=== PATIENT | female | born 1965 | race Caucasian/White ===

== ENCOUNTER 2021-11-24 12:09 | Emergency (ER) | payer BC, OTHER ==
[~2021-11-24] VITALS: Ht 172.7 cm; Wt 76.8 kg
[2021-11-24 13:01] VITALS: TEMP 99.3
[2021-11-24 13:26] LABS: BASO % 0.4 % (0.0-2.0); EOS # 0.1 K/mm3 (0.0-0.7); EOS % 2.2 % (0.0-4.0); GRAN # 3.6 K/mm3 (1.4-6.5); GRAN % 67.4 % (42.2-75.2); HEMATOCRIT 41.3 % (37.0-47.0); HEMOGLOBIN 13.9 g/dl (12.5-16.0); LYMPH # 1.3 K/mm3 (1.2-3.4); LYMPH % 23.8 % (20.0-51.0); MEAN CELL VOLUME 88 fl (80.0-100.0); MEAN CORPUSCULAR HEMOGLOBIN 29 pg (27-31); MEAN CORPUSCULAR HGB CONC 34 g/dl (33.0-37.0); MEAN PLATELET VOLUME 11.2 fl (7.4-10.4); MONO # 0.3 K/mm3 (0.1-0.6); PLATELET COUNT 193 K/mm3 (130-400); RED BLOOD COUNT 4.72 M/mm3 (4.10-5.30)
[2021-11-24 13:59] LABS: ALBUMIN 3.9 gm/dL (3.5-5.0); BILIRUBIN,TOTAL 0.5 mg/dL (0.2-1.2); CALCIUM 9.8 mg/dL (8.4-10.2); CREATININE, serum 0.98 mg/dL (0.57-1.11); POTASSIUM 3.7 mmol/L (3.5-4.5)
[2021-11-24 14:43] LABS: COLLECTION METHOD CLEAN CATCH
[2021-11-24 14:50] LABS: MUCOUS Present (NOT PRESENT); PH 7 (5-8); SQUAMOUS EPITHELIAL 0-2 /hpf (0-10); URINE APPEARANCE Clear (CLEAR/HAZY); URINE BACTERIA Rare /hpf (NONE SEEN); URINE BILIRUBIN Negative (NEGATIVE); URINE BLOOD 1+ (NEGATIVE); URINE COLOR Colorless (YELLOW); URINE GLUCOSE Negative (NEGATIVE); URINE KETONE Negative (NEGATIVE); URINE LEUKOCYTE ESTERASE Negative (NEGATIVE); URINE NITRATE Negative (NEGATIVE); URINE PROTEIN(semi-quant) Negative (NEGATIVE); URINE RBC 0-2 /hpf (0-2); URINE UROBILINOGEN Negative (NEGATIVE)
[2021-11-24 15:38] VITALS: BP 125/75; PULSE 72
== END 2021-11-24 15:40 | disposition home or self-care (01) ==
LOC: COL.ER 12:09
PROVIDERS: Emergency Medicine
DX: N20.0 Calculus of kidney (principal)
CPT/HCPCS: J7030; Q9967

== ENCOUNTER 2022-01-16 05:32 | Day surgery (SDC) | payer BC, OTHER ==
[2022-01-16] VITALS (18 sets, daily range): BP systolic 114–148; BP diastolic 59–86; PULSE 56–78; TEMP 97.7–98.2
[~2022-01-16] VITALS: Ht 172.7 cm; Wt 82.0 kg
[2022-01-16] MEDS ORDERED: PRILOSEC 20MG20 MG PO (06:12)
[2022-01-16] MEDS ORDERED: HYGROTON 2525 MG/TAB (06:13)
--- NOTE | 2022-01-16 08:10 | NUR ---
PT WAS GIVEN 1 MG VERSED AND 25 MCG OF FENTANYL
--- NOTE | 2022-01-16 08:25 | NUR ---
PT WAS GIVEN AN ADDITIONAL DOSE OF FENTANYL 25 MCG
[2022-01-16] MEDS ORDERED: PYRIDIUM 100MG100 MG PO (10:44)
--- NOTE | 2022-01-16 13:40 | NUR ---
REPORT FROM MILLICENT LOMAX IN PACU AT 1340. PT TRANSFERED TO ROOM 322. AT BEDSIDE. VS STABLE. ASSESSMENT COMPLETED. FLUIDS RUNNING IN LEFT HAND. PT DROWSY BUT AROUSES TO VERBAL COMMANDS. LEFT FLANK INCISION WITH MILD DRAINAGE. SCDS IN PLACE. PT REPORTS MILD PAIN. NO OTHER NEEDS AT THIS TIME. CALL LIGHT WITHIN REACH.
--- NOTE | 2022-01-16 19:20 | NUR ---
shift report from Tiana RICKS. patient in bed, alert and oriented. denies pain control needs at this time. x1 L flank lap site cdi with bandaids. ivf infusing to L hand IV. pleitez to dependent drainage with clear pink output. is at bedside. call light in reach.
[2022-01-17 03:45] VITALS: BP 121/56; PULSE 58; TEMP 97.8
--- NOTE | 2022-01-17 07:00 | NUR ---
BEDSIDE SHIFT REPORT TO NIKKI RICKS. PATIENT IN BED. DENIES PAIN. NO NEEDS AT THIS TIME.
[2022-01-17 07:50] VITALS: BP 121/74; PULSE 60; TEMP 98.3
--- NOTE | 2022-01-17 08:28 | NUR ---
PT EATING AND DRINKING WITH NO N/V. UP TO BR. YOST CATHETER TO DD WITH REDDISH URINE IN YOST BAG. PT DENIES NEEDS OR PAIN AT THIS TIME.
--- NOTE | 2022-01-17 10:07 | NUR ---
Initial visit; Patient thanked [employer] for looking in on her and offering God's blessings.
--- NOTE | 2022-01-17 10:40 | NUR ---
discontinued pleitez catheter with no issues. Tip intact and removed 500 mls reddish urine from pletiez prior to discontinuing.
[2022-01-17 11:36] VITALS: BP 125/64; PULSE 63; TEMP 98.3
--- NOTE | 2022-01-17 12:23 | NUR ---
electric utility lineworker met with patient to complete intake and discuss discharge plan. Patient reports that she lives here in [place] at home with her Cole ([phone]). Patient is independent with her ADl's and does not utilize any DME to assist with mobility. Patient has no home oxygen needs. PCP is and she utilizes [facility] pharmacy for prescriptions. Patient does not have a DPOA-HC established and does not wish to create one at this time. Education provided and patient verbalizes her understanding and agreement for Cole to be her decision maker. Patient is planning on returning home with no concerns. Discharge plan: Home
--- NOTE | 2022-01-17 15:51 | NUR ---
DISCHARGE INSTRUCTIONS REVIEWED WITH PT AND . QUESTIONS SOLICITED AND ANSWERED. PT LEFT AMBULATORY. IV DISCONTINUED.
== END 2022-01-17 15:00 | disposition home or self-care (01) ==
LOC: SDCO 05:32 → SURG 13:40 → SDCO 01-17 15:00
DX: N20.0 Calculus of kidney (principal)
CPT/HCPCS: OP; A4314; A9284; C1726; C1729; C1769; C1894; C2617; J0690; J1100; J1885; J2250; J2405; J2704; J3010; J7030; J7120